=== PATIENT | female | born 1975 | race Caucasian/White ===

== ENCOUNTER 2016-09-02 11:35 | Emergency (ER) | payer OTHER ==
[~2016-09-02] VITALS: Ht 170.2 cm; Wt 63.5 kg
[2016-09-02 11:40] VITALS: BP 109/73
[2016-09-02] MEDS ORDERED: JUNEL 1 MG-201 EACH (11:54)
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
[2016-09-02] MEDS ORDERED: NORCO 5-325 TA1 EACH PO ×2 (12:04→12:06)
[2016-09-02] MEDS ORDERED: IBUPROFEN600 M1 PO (12:04)
[2016-09-02] MEDS ORDERED: CYCLOBENZAPRINE5 M2 PO (12:04)
== END 2016-09-02 12:24 ==
LOC: ERH 11:35
DX: S76.012A Strain of muscle, fascia and tendon of left hip, initial encounter (principal); S46.911A Strain of unspecified muscle, fascia and tendon at shoulder and upper arm level, right arm, initial encounter; V49.40XA Driver injured in collision with unspecified motor vehicles in traffic accident, initial encounter; Y92.9 Unspecified place or not applicable